=== PATIENT | male | born 1985 | race Caucasian/White ===

== ENCOUNTER → 2016-12-08 15:30 | Emergency (ER) | payer OTHER ==
[~2016-12-08] VITALS: Ht 180.3 cm; Wt 90.8 kg
[~2016-12-08 15:30] MED LIST: AUGMENTIN875 MG PO; Ceftin PO; Habitrol,Nicoderm CQ TD; KEFLEX500 MG PO; LIDOCAINE20 MG/1 M5 PO; Levaquin PO; MOTRIN600 MG PO; NAPROXEN500 MG PO; NOHOMEMEDS; NORCO 5/3251 TABLET PO; NORCO 7.5/321 TABLET PO; PEN-VEE K,VEET500 MG PO; Proventil,Ventolin H IH; TRAMADOL HCL50 MG PO; Zithromax PO
[2016-12-08 18:33] VITALS: BP 129/67
== END | disposition home or self-care (01) ==
LOC: EME 15:30
DX: K02.9 Dental caries, unspecified (principal); K08.89 Other specified disorders of teeth and supporting structures; F17.200 Nicotine dependence, unspecified, uncomplicated
CPT/HCPCS: 99281; 99283

== ENCOUNTER 2017-08-31 23:24 | Emergency (ER) | payer OTHER ==
[~2017-08-31] VITALS: Ht 180.3 cm; Wt 85.7 kg
[2017-09-01 01:08] LABS: EOSINOPHIL (%) 6.7 % (0-5); EOSINOPHIL COUNT 0.5 K/uL (0-0.3); HEMATOCRIT 41.7 % (38.0-50.0); IMMATURE GRANULOCYTE (%) 0.4 % (0.0-0.7); INSTRUMENT ABS NEUTROPHIL CT 3.5 K/uL; LYMPHOCYTE COUNT 2.3 K/uL (1.0-2.8); MCHC 33.3 G/DL (30.0-36.0); MCV 89.9 FL (86-99); MEAN PLAT.VOLUME 10.3 uM^3 (9.0-12.4); MONOCYTE (%) 13.5 % (3-12); NEUTROPHIL (%) 47.2 % (45-76); NEUTROPHIL COUNT 3.5 K/uL (1.8-6.4); PLATELET COUNT 155 K/uL (156-360); RBC DIS.WIDTH-CV 13.2 % (11.8-14.6); RBC DIS.WIDTH-SD 43.5 % (39-53); RED BLOOD COUNT 4.64 M/uL (4.00-5.50); WHITE BLOOD COUNT 7.3 K/uL (4.1-10.2)
[2017-09-01 01:27] LABS: CHLORIDE 104 mEq/L (99-109); POTASSIUM 4.4 mEq/L (3.7-5.4)
[2017-09-01 01:28] LABS: SODIUM 138 mEq/L (136-147)
[2017-09-01 01:29] LABS: GLUCOSE 97 mg/dL (70-99)
[2017-09-01 01:31] LABS: ANION GAP 9 MEQ/L (2-14)
[2017-09-01 01:33] LABS: GFR ESTIMATE (CALCULATED) > 59 mL/min/ (58.99-99999)
[2017-09-01 01:34] LABS: UREA NITROGEN (BUN) 18 mg/dL (9-23)
[2017-09-01 03:21] VITALS: BP 116/63
== END 2017-09-01 03:21 | disposition home or self-care (01) ==
LOC: EME 23:24
PROVIDERS: Emergency Medicine
DX: M54.5 Low back pain (principal); M54.16 Radiculopathy, lumbar region; G35 Multiple sclerosis; F17.200 Nicotine dependence, unspecified, uncomplicated
CPT/HCPCS: 70450; 72131; 80048; 85025; 99281; 99284